=== PATIENT | male | born 1950 | race Caucasian/White ===

== ENCOUNTER 2023-01-15 09:34 | Emergency (ER) | payer OTHER ==
[~2023-01-15] VITALS: Ht 182.9 cm; Wt 97.7 kg
[2023-01-15 10:50] VITALS: BP 15/94
[2023-01-15] MEDS ORDERED: CYCLOBENZAPRINE10 MG PO (10:55)
[2023-01-15] MEDS ORDERED: TRAMADOL HYDROC50 M1 PO (10:55)
== END 2023-01-15 11:03 | disposition home or self-care (01) | DRG 552 ==
LOC: ED 09:34
DX: M54.50 Low back pain, unspecified (principal); I10 Essential (primary) hypertension; J45.909 Unspecified asthma, uncomplicated

== ENCOUNTER 2023-10-18 11:38 | Emergency (ER) | payer OTHER ==
[~2023-10-18] VITALS: Ht 182.9 cm; Wt 122.0 kg
[2023-10-18] VITALS (15 sets, daily range): BP systolic 120–145; BP diastolic 69–83
[~2023-10-18 11:38] MED LIST: CYCLOBENZAPRINE10 MG PO; TRAMADOL HYDROC50 M1 PO
[2023-10-18 11:54] LABS: BASO% 0.4 % (0-3); EOS% 0.8 % (0-8); HEMATOCRIT 46.1 % (39.0-50.0); HEMOGLOBIN 14.8 g/dl (14.0-18.0); IMMATURE GRANULOCYTES 0.2 % (0.0-5.0); LYMPH% 20.5 % (15-41); MEAN CELL VOLUME 96.4 fL CALC (80.0-100.0); MEAN CORPUSCULAR HGB CONC 32.1 g/dL CAL (32.0-36.0); MONO% 7.2 % (2-13); NEUT# 6.04 thou/uL (1.82-7.42); NEUT% 70.9 % (42-76); RED BLOOD COUNT 4.78 mill/uL (4.70-6.10)
[2023-10-18 12:36] LABS: ALBUMIN 4.3 g/dL (3.2-5.0); ALKALINE PHOSPHATASE 94 u/l (38-126); ANION GAP 13 (6-22 (CALC)); BILIRUBIN, TOTAL 0.6 mg/dL (0.2-1.3); BUN 16 mg/dL (8-23); BUN/CREATININE RATIO 15 (12-20 (CALC)); CARBON DIOXIDE 23 mmol/l (22-30); CHLORIDE 111 mmol/l (95-108); GFR FOR AFR.AMER. > 60 ML/MIN (>=60 (CALC)); GFR OTHER RACES > 60 ML/MIN (>=60 (CALC)); POTASSIUM 4.4 mmol/l (3.5-5.1); SGOT/AST 29 u/l (19-48); SODIUM 143 mmol/l (137-146); TOTAL PROTEIN 7.4 g/dL (6.3-8.2)
== END 2023-10-18 20:21 | disposition home or self-care (01) | DRG 149 ==
LOC: ED 11:38
PROVIDERS: Family Medicine
DX: R42 Dizziness and giddiness (principal); R07.9 Chest pain, unspecified; I10 Essential (primary) hypertension; J45.909 Unspecified asthma, uncomplicated